=== PATIENT | male | born 1975 | race Caucasian/White ===

== ENCOUNTER 2025-05-08 13:09 | Emergency (ER) | payer OTHER, SELFPAY ==
[2025-05-08] VITALS (25 sets, daily range): BP systolic 135–156; BP diastolic 75–104; PULSE 62–81; RESP 8–28; TEMP 35.7; O2SAT 96–100; BMI 30.2
--- NOTE | 2025-05-08 13:30 | CRLHL7_ITS ---
For Patients: As a result of the Century Cures Act, medical imaging exams and procedure reports are released immediately into your electronic medical record. You may view this report before your referring provider. If you have questions, please contact your health care provider. INDICATION: Fall, facial lacerations TECHNIQUE: CT head without contrast. COMPARISON: None. FINDINGS: CSF spaces: Within normal limits for age. Brain parenchyma: The thomas-white differentiation is normal. No sign of mass, hemorrhage, or midline shift. Skull base and calvarium: Right maxillary sinus mucosal retention cysts. The visualized orbits are grossly unremarkable. Bilateral nasal bone fractures with mild leftward displacement of the nasal bones. IMPRESSION: 1. No intracranial bleed or mass effect. 2. Bilateral nasal bone fractures. Please note that all CT scans at this facility use dose modulation, iterative reconstruction, and/or weight-based dosing when appropriate to reduce radiation dose to as low as reasonably achievable. Dictated by Conner Kessler MD @ 05/08/2025 2:03:27 PM (Electronically Signed)
--- NOTE | 2025-05-08 13:30 | CRLHL7_ITS ---
For Patients: As a result of the Century Cures Act, medical imaging exams and procedure reports are released immediately into your electronic medical record. You may view this report before your referring provider. If you have questions, please contact your health care provider. Indication: Patient fell on pad of hand. Technique: Right hand 3 views. Comparison: None. Findings: Bones: Alignment is normal. No acute fracture or suspicious bone lesion. Joint spaces: Unremarkable. Soft tissues: Unremarkable. Impression: No evidence of an acute bony abnormality. Dictated by Rodrigue Pollock MD @ 05/08/2025 2:02:11 PM (Electronically Signed)
--- NOTE | 2025-05-08 13:30 | CRLHL7_ITS ---
For Patients: As a result of the Century Cures Act, medical imaging exams and procedure reports are released immediately into your electronic medical record. You may view this report before your referring provider. If you have questions, please contact your health care provider. INDICATION: Fall, facial lacerations. TECHNIQUE: CT maxillofacial without contrast. COMPARISON: None FINDINGS: Facial bones: Bilateral nasal bone fractures with medial displacement of the right nasal bone of 2 millimeters and 2 millimeter lateral displacement of the left nasal bone. Fracture extends to the anterior margin of the nasal septum. Orbits and globes: Unremarkable. Globes are intact. No sign of intraorbital hemorrhage or emphysema. Sinuses: Mucous retention cysts maxillary sinuses. Christine bullosa on the left. Soft tissues: Mild fat stranding in the paranasal tissues. IMPRESSION: Mildly displaced bilateral nasal bone fractures as described above. Please note that all CT scans at this facility use dose modulation, iterative reconstruction, and/or weight-based dosing when appropriate to reduce radiation dose to as low as reasonably achievable. Dictated by Conner Kessler MD @ 05/08/2025 2:19:33 PM (Electronically Signed)
--- NOTE | 2025-05-08 13:30 | CRLHL7_ITS ---
For Patients: As a result of the Cures Act, medical imaging exams and procedure reports are released immediately into your electronic medical record. You may view this report before your referring provider. If you have questions, please contact your health care provider. Indication: Pain, fall. Technique: Right elbow 3 views. Comparison: None. Findings: Bones: Alignment is normal. No acute fracture or suspicious bone lesion. Tiny olecranon enthesophyte. Joint spaces: Unremarkable. No elbow joint effusion. Soft tissues: Unremarkable. Impression: No evidence of an acute bony abnormality. Dictated by Rodrigue Pollock MD @ 05/08/2025 2:03:38 PM (Electronically Signed)
--- NOTE | 2025-05-08 13:30 | CRLHL7_ITS ---
For Patients: As a result of the Cures Act, medical imaging exams and procedure reports are released immediately into your electronic medical record. You may view this report before your referring provider. If you have questions, please contact your health care provider. INDICATION: Injury and pain. TECHNIQUE: Chest and right ribs 3 views. COMPARISON: None. FINDINGS: Cardiovascular and mediastinum: Heart size and vasculature are normal in caliber and appearance. Mediastinum is within normal limits. Lungs and pleural spaces: Lungs are clear. No sign of infiltrate or mass. No sign of pleural effusion. No pneumothorax. Bones and soft tissues: Detailed oblique images of the right ribs demonstrate no fractures or bone lesions. IMPRESSION: Unremarkable chest and right ribs. Dictated by Jorge Alberto Minor MD @ 05/08/2025 1:57:11 PM (Electronically Signed)
--- NOTE | 2025-05-08 13:50 | ED.GENADULT ---
HPI - General Adult General Chief complaint: Fall/Minor Trauma Stated complaint: laceration on face, chin, and possible broken nose Time Seen by Provider: 05/08/25 13:21 Source: patient Mode of arrival: ambulatory Limitations: no limitations History of Present Illness HPI narrative: 49-year-old male presenting today after falling from a ladder, approximately 10 ft in the air. He hit his face on the lateral wrong on the way down before hitting the ground. He is complaining of facial pain, right hand and elbow pain. Patient not on any blood thinners. Denies headache or confusion. No nausea or vomiting. TTA was called. Related Data Home Medications ?Medication ?Instructions ?Recorded ?Confirmed potassium chloride 10 mEq 10 meq PO DAILY 05/08/25 05/08/25 tablet,extended release(part/cryst) (Klor-Con M) Previous Rx's ?Medication ?Instructions ?Recorded sulfamethoxazole 800 1 tab PO BID 7 days #14 tabs 05/08/25 mg-trimethoprim 160 mg tablet (Bactrim DS) Allergies Allergy/AdvReac Type Severity Reaction Status Date / Time Penicillins Allergy Unknown Verified 05/08/25 13:34 amoxicillin Allergy Verified 05/08/25 13:38 Review of Systems Status of ROS: Reports: 10 or more systems reviewed and unremarkable except as noted in History and below Exam Narrative: Exam Narrative: Well-nourished well-developed patient in no acute distress. Alert and oriented x3. Answers questions appropriately. Mood and affect are appropriate. Thoughts are goal oriented and rational. No tangential or magical thinking noted. Patient speaks in full sentences without needing to catch their breath. GCS is 15. Patient is speaking and breathing without difficulty. Several areas of bleeding across his face. HEENT: Normocephalic . Pupils are equally round reactive to light. Extraocular muscles are intact. Conjunctivae are moist without any icterus noted. Moist mucous membranes. Posterior pharynx is normal. No trauma noted to the inside of the mouth. Neck is soft pain to palpation. Patient has bleeding across the forehead, bridge of the nose, chin. He has approximately a 1 in laceration on the forehead right between the eyebrows that penetrates through into the subcutaneous tissue. He has a laceration of the chin that is approximately 8 mm that is gaping open. He has a laceration of the bridge of the nose that does not penetrate through the dermis. No septal hematoma on either side. Cardiovascular: Heart is regular rate and rhythm S1 and S2 are present without any murmurs. Lungs: Clear to auscultation bilaterally no wheezes rhonchi or rales are appreciated. Patient takes deep breaths without any discomfort. Patient has no tenderness to palpation of the lateral or posterior chest wall. He has some tenderness to palpation of the anterior lower left chest wall, no bony point tenderness. A large abrasion is present at the area of tenderness. Abdomen: Soft and nontender nondistended with normal bowel sounds. No guarding or rebound. No masses or organomegaly appreciated. Extremities: Bilateral lower extremities are without edema. Normal DP and PT pulses. Swelling and superficial abrasion of the right elbow. Swelling of the thenar eminence of the right hand. Normal radial pulse. Small laceration to the lateral thumb on the left side, does not penetrate through the dermis and is superficial. Skin: Well perfused. Back: Normal appearance. Patient has no tenderness to palpation at the cervical, thoracic or lumbar spine. Patient has full range of motion at the neck with flexion, extension, side way bending and rotation without pain. Patient walks without difficulty. Const: Vital Signs, click to edit/add: Vital Signs - 24 hr 05/08/25 13:21 05/08/25 13:34 05/08/25 13:35 Temperature 96.2 F L Pulse Rate 72 66 Pulse Rate [Pulse Oximeter] 75 Respiratory Rate 16 Blood Pressure 136/87 Blood Pressure [Ri ght Upper Arm] 135/81 Pulse Oximetry 96 96 97 Oxygen Delivery Me thod Room Air 05/08/25 13:57 05/08/25 13:59 05/08/25 14:00 Temperature Pulse Rate 71 81 71 Pulse Rate [Pulse Oximeter] Respiratory Rate 27 H Blood Pressure 146/91 H Blood Pressure [Ri ght Upper Arm] Pulse Oximetry 100 99 97 Oxygen Delivery Me thod 05/08/25 14:01 05/08/25 14:06 05/08/25 14:11 Temperature Pulse Rate 69 71 Pulse Rate [Pulse Oximeter] Respiratory Rate 13 12 Blood Pressure 147/75 H 135/83 Blood Pressure [Ri ght Upper Arm] Pulse Oximetry 98 98 96 Oxygen Delivery Me thod 05/08/25 14:15 05/08/25 14:22 05/08/25 14:30 Temperature Pulse Rate 66 70 76 Pulse Rate [Pulse Oximeter] Respiratory Rate 11 L 28 H 18 Blood Pressure 140/89 H Blood Pressure [Ri ght Upper Arm] Pulse Oximetry 96 98 96 Oxygen Delivery Me thod Room Air Course Course ED Course: Head and facial CTs were obtained. Patient has a nasal fracture no other abnormalities. We x-rayed his hand, elbow and ribs-all unremarkable. Laceration of the forehead and chin were clean the usual sterile manner anesthetized with 2% lidocaine. Seven sutures with 6 0 Ethilon placed in the forehead and 4 sutures with 5 0 Ethilon placed in the chin. Thumb laceration was dressed. Vital Signs Vital signs: Initial Vital Signs Temperature 96.2 F L 05/08/25 13:21 Temperature Source Temporal Artery Scan 05/08/25 13:21 Pulse Rate 75 05/08/25 13:21 Respiratory Rate 16 05/08/25 13:21 Blood Pressure 135/81 05/08/25 13:21 Blood Pressure Mean 99 05/08/25 13:21 Blood Pressure Position Sitting 05/08/25 13:21 Pulse Oximetry 96 05/08/25 13:21 Oxygen Delivery Method Room Air 05/08/25 13:21 Vital Signs Temperature 96.2 F L 05/08/25 13:21 Pulse Rate 75 05/08/25 13:21 Respiratory Rate 16 05/08/25 13:21 Blood Pressure 135/81 05/08/25 13:21 Pulse Oximetry 96 05/08/25 13:21 Oxygen Delivery Method Room Air 05/08/25 13:21 Temperature 96.2 F L 05/08/25 13:21 Pulse Rate 76 05/08/25 14:30 Respiratory Rate 18 05/08/25 14:30 Blood Pressure 140/89 H 05/08/25 14:22 Pulse Oximetry 96 05/08/25 14:30 Oxygen Delivery Method Room Air 05/08/25 14:22 Medications Administered Medications: Discontinued Medications Generic Name Dose Route Start Last Admin Trade Name Freq PRN Reason Stop Dose Admin Lidocaine HCl 20 ml 05/08/25 14:39 05/08/25 14:49 Lidocaine Hcl 2 % Multidose 20 Ml Vial INJECTION 05/08/25 14:40 20 ml ONCE ONE Administration Medical Decision Making MDM Narrative Medical decision making narrative: 49-year-old male status post falling from a ladder suffering nasal fracture multiple facial lacerations. Treated per above. Patient will follow-up with ENT regarding nasal fracture. Because of the depth of the laceration on the chin, I do want the patient to be on antibiotics. Patient states that he cannot tolerate penicillins or amoxicillin. He states that Keflex give him a rash in the past also. Therefore we are going to use Bactrim at this time. Imaging Data X-ray elbow : Attestation: I have reviewed the pertinent imaging results. Radiologist's impression: Technique: Right elbow 3 views. Comparison: None. Findings: Bones: Alignment is normal. No acute fracture or suspicious bone lesion. Tiny olecranon enthesophyte. Joint spaces: Unremarkable. No elbow joint effusion. Soft tissues: Unremarkable. Impression: No evidence of an acute bony abnormality. Chest x-ray with ribs: Attestation: I have reviewed the pertinent imaging results. Radiologist's impression: TECHNIQUE: Chest and right ribs 3 views. COMPARISON: None. FINDINGS: Cardiovascular and mediastinum: Heart size and vasculature are normal in caliber and appearance. Mediastinum is within normal limits. Lungs and pleural spaces: Lungs are clear. No sign of infiltrate or mass. No sign of pleural effusion. No pneumothorax. Bones and soft tissues: Detailed oblique images of the right ribs demonstrate no fractures or bone lesions. IMPRESSION: Unremarkable chest and right ribs. X-ray hand: Attestation: I have reviewed the pertinent imaging results. Radiologist's impression: Technique: Right hand 3 views. Comparison: None. Findings: Bones: Alignment is normal. No acute fracture or suspicious bone lesion. Joint spaces: Unremarkable. Soft tissues: Unremarkable. Impression: No evidence of an acute bony abnormality. CT scan - head: Attestation: I have reviewed the pertinent imaging results. Radiologist's impression: TECHNIQUE: CT head without contrast. COMPARISON: None. FINDINGS: CSF spaces: Within normal limits for age. Brain parenchyma: The thomas-white differentiation is normal. No sign of mass, hemorrhage, or midline shift. Skull base and calvarium: Right maxillary sinus mucosal retention cysts. The visualized orbits are grossly unremarkable. Bilateral nasal bone fractures with mild leftward displacement of the nasal bones. IMPRESSION: 1. No intracranial bleed or mass effect. 2. Bilateral nasal bone fractures. CT facial: Attestation: I have reviewed the pertinent imaging results. Radiologist's impression: TECHNIQUE: CT maxillofacial without contrast. COMPARISON: None FINDINGS: Facial bones: Bilateral nasal bone fractures with medial displacement of the right nasal bone of 2 millimeters and 2 millimeter lateral displacement of the left nasal bone. Fracture extends to the anterior margin of the nasal septum. Orbits and globes: Unremarkable. Globes are intact. No sign of intraorbital hemorrhage or emphysema. Sinuses: Mucous retention cysts maxillary sinuses. Christine bullosa on the left. Soft tissues: Mild fat stranding in the paranasal tissues. IMPRESSION: Mildly displaced bilateral nasal bone fractures as described above. Discharge Plan Discharge Clinical Impression: Fall, Face lacerations, Fracture, nasal Patient Disposition: Home, Self-Care Condition: Stable Additional Instructions: You will need to follow-up with the Ear, Nose, and Throat doctor for follow-up of your nose fracture. The phone number will be provided to you today, call them 1st thing in the morning and ask for an ER follow-up visit on Tuesday or Tuesday. Keep wounds clean and dry. Do not soak such as taking baths, swimming. Follow-up in approximately 1 week for suture removal with your primary care provider. Watch for signs and symptoms of infection including increasing redness of the area, purulent drainage, or fever. If this occurs follow-up right away with your doctor or return to the ER. This will be unlikely as you will be placed on antibiotics today. Take all antibiotics as prescribed. Recommend not taking potassium supplements for the next 5 days (okay to take for the last 2 days while on antibiotics) as there is a potential reaction between the supplement and your antibiotic. Prescriptions: New sulfamethoxazole-trimethoprim [Bactrim DS] 800-160 mg tablet 1 tab PO BID 7 Days Qty: 14 0RF No Action potassium chloride [Klor-Con M10] 10 mEq tablet,ER particles/crystals 10 meq PO DAILY Stand Alone Forms: MyHealth Info Instructions
[2025-05-08] MEDS: lidocaine HCL 2 % MULTIDOSE 20 ML VIAL INJECTION (14:49)
[2025-05-08] MEDS: ACETAMINOPHEN 500 MG TABLET 1000 MG PO (15:38)
--- OUTSIDE RECORDS SUMMARY | 2025-05-08 15:45 | XMS_ITS | Clinical Summary ---
Author Organization [facility] Address [address] [place] [id number] Care Team Providers Care Back Tender Insulation Board Name Role Phone Sepideh Chavis MD Primary Care Provider [phone] Allergies Active Allergy Reactions Criticality Noted Date Comments Amoxicillin Diarrhea,Vomiting 11/20/2018 Cephalexin Rash 02/27/2016 Developed extensive folliculitis across his chest twice while taking cephalexin. Medications sertraline (ZOLOFT) 100 mg tabletIndication s:Reactive depression Take 1 Tablet (100 mg) by mouth every morning. 90 Tablet 3 10/17/2023 Active Active Problems Problem Noted Date Diagnosed Date Umbilical hernia without obstruction and without gangrene 04/21/2023 Snoring 06/20/2017 Overview (07/10/2018): With witnessed apneas and non-restorative sleep. Seen by [facility] 06/20/2017, and a Home Sleep Test was ordered, and then follow up with the Sleep Clinic 1 week later. IMPRESSION: Excessive Daytime Sleepiness (780.54, G47.10) - No Evidence of Obstructive Sleep Apnea Primary Snoring (786.09, R06.83) - No Evidence of Obstructive Sleep Apnea Blank RECOMMENDATIONS: - A formal polysomnogram should be considered given a high false negative rate to home sleep testing. - However, if there is low clinical suspicion for obstructive sleep apnea, a negative home sleep test can be diagnostic. - Follow-up with a provider to discuss results is recommended. - Patients should be advised to avoid critical tasks, such as driving, whenever drowsy. - Patients should try to achieve at least 7-8 hours of sleep on a consistent basis. Mae Mayer MD .................... 07/15/2017 Overnight sleep study done 07/26/2017 at [facility], and AHI<20, so patient did not meet criteria for CPAP treatment. H/O: vasectomy 07/23/2016 Overview (07/23/2016): 2016 Prediabetes 03/02/2016 Overview (07/23/2018): GLUCOSE (mg/dL) Date Value 03/02/2016 102* GLUCOSE (mg/dL) Date Value 07/19/2018 100 HEMOGLOBIN A1C SCREENING (%) Date Value 07/19/2018 4.7 Dyslipidemia 03/02/2016 Overview (07/23/2018): Low HDL level. Last Lipids: Chol: 138 03/02/2016 T 03/02/2016 HDL: 36 03/02/2016 LDL: 75 03/02/2016 Last Lipids: Chol: 07/19/2018 165 T07/19/2018 103 HDL: 07/19/2018 43 LDL: 07/19/2018 101 Overweight 02/27/2016 Overview (07/23/2018): BMI 29-30 range. Reactive depression 02/27/2016 Overview (02/27/2016): On sertraline since 2014, since being unemployed/underemployed. Eczema 02/27/2016 Overview (02/27/2016): [place] [address]. Tends to flare up more in the winter time. Resolved Problems Problem Noted Date Diagnosed Date Resolved Date Health care maintenance 02/27/2016 07/0 12/2021 Overview (02/27/2016): Colonoscopy Bone Density Last Lipids: Chol: TG: HDL: LDL: Immunizations Immunization Administration Dates Next Due COVID-19 vaccine (Moderna 100mcg/0.5mL) PF, MDV 02/24/2021,01/22/2021 COVID-19 vaccine (Moderna Johnnie ankush 50mcg/0.25mL) PF, MDV 02/12/2022 Influenza Virus, Unspecified 06/05/2015 Influenza, IIV4 07/06/2023, 0,08/03/2019,2016 Influenza, IIV4 (=>6mos) MDV 07/10/2018 Tdap 12/11/2014 Family History Medical History Relation Name Comments Other Brother Obesity Sleep apnea Brother Hypertension Father Heart failure Maternal Aunt from CHF (mother's twin sister). Heart Disease Maternal Grandfather ? from [place] Diabetes Mother DM2 Peripheral vascular disease Mother Carotid stent at age 65 (smoker). Other Paternal Aunt 1 CA (?type) Other Paternal Aunt 2 CA (?type) Heart Disease Paternal Grandfather ? from MD Other Paternal Grandmother Thyroid CA Relation Name Status Comments Brother Alive Father Alive Maternal Aunt Maternal Grandfather Mother Alive Paternal Aunt 1 Paternal Aunt 2 Paternal Grandfather Paternal Grandmother Social History Tobacco Use Types Packs/Day Years Used Date Smoking Tobacco: Former Cigarettes 0.3 15.7 1 995 - 06/05/2010 Smokeless Tobacco: Never Tobacco Cessation:Counseling Given: Not Answered Comments:Stopped in Sep Alcohol Use Standard Drinks/Week Comments Not Currently 0 (1 standard drink = 0.6 oz pur e alcohol) rarely PHQ-2 Answer Date Recorded PHQ-2 TOTAL SCORE 3 10/17/2023 Social Connections Answer Date Recorded Frequency of Communication with Friends and Fami ly Not on file 09/10/2021 Financial Resource Strain Answer Date R ecorded Difficulty of Paying Living Expenses Not on file 09/10/2021 Difficulty of Paying Living Expenses Not on file 09/10/2021 Sex and Gender Information Value Date Recorded Sex Assigned at Male 01/21/2021 3:15 PM CDT Legal Sex Male 5:13 PM CDT Gender Identity Male 01/21/2021 3:15 PM CDT Sexual Orientation Straight 01/21/2021 3: 15 PM CDT 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12 04/21/2023 12:52 PM CDT Plan of Treatment Health Maintenance Due Date Last Done Comments HIV for age 15-65 1989 Hepatitis B series for 19+ ( 1 of 3 - 19+ 3-dose series) 1993 BMI (ht and wt on same day) for age 18+ 04/21/2024 04/21/2023, 03/25/2022, 07/11/2020, Additional history exists COVID-19 vaccine series ( season) 2024 02/12/2022, 02/24/2021, 01/22/2021 Depression screening for age 12+ 10/17/2024 10/17/2023, 07/06/2023, 04/21/2023, Additional history exists Pneumococcal series for age 50+ (1 of 1 - PCV) 2024 Zoster (shingles) series for age 50+ (1 of 2) 2024 Tetanus booster 12/11/2024 12/11/2014 Influenza Vaccine (#1) 2025 , 07/11/2020, 08/03/2019, Additional history exists Lipids for age 45-75 04/21/2028 04/21/2023, 04/08/2022, 09/01/2020, Additional history exists Colonoscopy through age 75 08/12/2032 08/12/2022 Hepatitis C screening for ag e 18-79 Completed 04/08/2022 Procedures Procedure Name Priority Date/Time Associated Diagnosis Comments LIPID PANEL W REFLEX MEASURED LDL Routine 04/21/2023 1:47 PM CDT Dyslipidemia SCAN-COLONOSCOPY 08/12/2022 3:00 PM TABLE ASSEMBLER ANTI HCV Routine 04/08/2022 12:14 PM CDT Need for hepatitis C screening test from Last 3 Months or Most Recently Relevant to Health Maintenance Results * (ABNORMAL) LIPID PANEL W REFLEX MEASURED LDL (04/21/2023 1:47 PM CDT) CHOLESTEROL,TOTAL 160 100 - 199 mg/dL 04/21/2023 8:12 PM CDT [facility] Comment: Cholesterol, Total Reference Ranges Desirable <200 mg/dL Borderline 200-239 mg/dL High >=240 mg/dL TRIGLYCERIDES 140 <150 mg/dL 04/21/2023 8:12 PM CDT [facility] HDL CHOLESTEROL 40(L) >40 mg/dL 8:12 PM CDT [facility] NON-HDL CHOLESTEROL 120 <145 mg/dl 04/21/2023 8:12 PM CDT [facility] CHOL/HDL RATIO 4.00 <4.50 04/21/2023 8:12 PM CDT [facility] LDL CHOLESTEROL 92 <=130 mg/dL 04/21/2023 8:12 PM CDT [facility] VLDL CHOLESTEROL 28 <=30 mg/dL 04/21/2023 8:12 PM CDT [facility] PROVIDER ORDERED STATUS FASTING 04/21/2023 8:12 PM CDT [facility] Blood BLOOD SPECIMEN / Unknown Venipuncture / Unknown 04/21/2023 1:47 PM CDT 04/21/2023 1:49 PM CDT us Sepideh Chavis MD CHEMISTRY Final Result [facility] [address] [place] [address], [place] * SCAN-COLONOSCOPY (08/12/2022 3:00 PM TABLE ASSEMBLER) Narrative Procedure Note Sandeep Hilliard MD - 08/12/2022 2:18 PM CST [facility] [address] [place] [address], [address], [place] [address] Patient Name: Olu Kincaid Gender: Male Exam Date: 08/12/2022 Visit Number: [id number] Age: 46 Years Date of : 1975 Attending MD: Sandeep Hilliard MD Medical Record#: [id number] Procedure: Colonoscopy Indications: Colorectal cancer screening Referring MD: Referral Self Primary MD: Paula Lunsford MD Medications: Admitting Medications: 0.9% Normal Saline at TKO Intra Procedure Medications: Patient received monitored anesthesia care. Complications: No immediate complications Procedure: An examination of the heart and lungs was performed and found to be withinacceptable limits. . The patient was therefore deemed a reasonablecandidate for endoscopy and sedation. The risks and benefits of the procedure were explained to the patient.After obtaining informed consent, the patient received monitoredanesthesia care and I passed the scope without difficulty via the rectum to the ileum. The appendiceal orificeand ic valve were identified. The scope was retroflexed during theexamination The quality of the prep was excellent (Miralax/Gatorade/2tablets Bisacodyl/Magnesium Citrate). This was a complete examination throughout the entire colon. Findings: Normal finding. Location - ileum. Polyp location: ascending colon. Quantity: 2. Size: 3 mm, 5 mm. Polypshape: sessile. Maneuver: polypectomy was performed with a cold snare. Removal: complete. Retrieval: complete. Bleeding: none. Polyp location: rectosigmoid. Quantity: 2. Size: 2 mm, 3 mm. Polypshape: sessile. Maneuver: polypectomy was performed with a cold snare . Removal: complete. Retrieval: complete. Bleeding: none. Remainder of the exam is normal. Comments: retroflexion right colon Impression: Colorectal polyps Preliminary Plan: The patient and their physician will receive a copy of the pathologyreport as well as pathology-based recommendations for future screening orsurveillance. Return to your primary care provider Pathology Results: A: COLON, ASCENDING, POLYPS: 1. Sessile serrated adenomas (2) 2. Negative for overt dysplasia 3. Per the colonoscopy report: a. Polyp sizes: 3 mm and 5 mm b. Resection: Complete c. Retrieval: Complete B: COLON, SIGMOID AND RECTUM, POLYPS: 1. Hyperplastic polyps (2) MICROSCOPIC A: Performed B: Performed Electronically signed by: Jose Ramon Madrigal MD Interpreted at [facility], [address] [place], [place] [id number] Orders Instruction(s)/Education: Instruction/Education Timeframe Assessment Colon Polyps K63.5 Final Plan: Repeat colonoscopy in 7 years for Polyp surveillance. We will attempt to contact you at appropriate intervals via U.S. mail. Wemay not be able to find you or contact you at that time, therefore youshould know that the responsibility for following our recommendation restswith you. If you don't hear from us at the time your procedure is due,please contact our office to schedule an appointment. If your contactinformation should change, please contact our office so that we can updateyour record. _Electronically signed by: Sandeep Hilliard MD 08/12/2022 cc: Paula Lunsford MD us Sandeep Hilliard MD OTHER Final Resu lt * ANTI HCV (04/08/2022 12:14 PM CDT) HEPATITIS C ANTIBODY Non-React stefan Non-React stefan 04/08/2022 8:53 PM CDT [facility] Comment:Antibodies to HCV no t detected; does not exclude the possibility of exposure to HCV. Blood BLOOD SPECIMEN / Unknown Venipuncture / Unknown 04/08/2022 12:14 PM CDT 04/08/2022 12:18 PM CDT us Sepideh Chavis MD SEND OUTS Final Result [facility] [address] [place] [address], from Last 3 Months or Most Recently Relevant to Health Maintenance Care Teams Back Tender Insulation Board Relationship Specialty Start Date End Date Sepideh Chavis MD [address] [place] [address] PCP - General Family Practice 12/03/19
--- OUTSIDE RECORDS SUMMARY | 2025-05-08 15:45 | XMS_ITS | Clinical Summary ---
Author Organization [facility] Address [address] [place] [address] Care Team Providers Care Toy Consultant Name Role Phone Unavailable Primary Care Provider Unavailabl e Source Comments You are receiving this document as you are listed as the primary care provider,follow-up provider, or the patient has been referred to you for consultation.This is in compliance with the Medicare andMedicaid EHR Incentive Program,which states Providers who transition their patient to another setting of careor provider of care or refers their patient to another provider of care shouldprovide summary care record for each transition of care or referral. [facility] Allergies Active Allergy Reactions Criticality Noted Date Comments Amoxicillin Diarrhea,Gastrointes ti nal 11/20/2018 Cephalexin Rash 02/27/2016 Developed extensive folliculitis across his chest twice while taking cephalexin. Medications triamcinolone acetonide (KENALOG) 0.1 % creamIndications :Urticaria,Eczem a, unspecified type Apply topically three times a day. 30 g 5 Active Active Problems Problem Noted Date Diagnosed Date Umbilical hernia without obstruction and without gangrene 04/21/2023 Snoring 06/20/2017 Overview (12/27/2024): With witnessed apneas and non-restorative sleep. Seen by [facility] 06/20/2017, and a Home Sleep [...] 07/15/2017 Overnight sleep study done 07/26/2017 at [facility], and AHI<20, so patient did not meet criteria for CPAP treatment. H/O: vasectomy 07/23/2016 Overview (12/27/2024): 2016 Dyslipidemia 03/02/2016 Overview (12/27/2024): Low HDL level. Last Lipids: Chol: 138 03/02/2016 T 03/02/2016 HDL: 36 03/02/2016 LDL: 75 03/02/2016 Last Lipids: Chol: 07/19/2018 165 T07/19/2018 103 HDL: 07/19/2018 43 LDL: 07/19/2018 101 Prediabetes 03/02/2016 Overview (12/27/2024): GLUCOSE (mg/dL) Date Value 03/02/2016 102* GLUCOSE (mg/dL) Date Value 07/19/2018 100 HEMOGLOBIN A1C SCREENING (%) Date Value 07/19/2018 4.7 Eczema 02/27/2016 Overview (12/27/2024): Since [address]. Tends to flare up more in the winter time. Overweight 02/27/2016 Overview (12/27/2024): BMI 29-30 range. Reactive depression 02/27/2016 Overview (12/27/2024): On sertraline since 2014, since being unemployed/underemployed. Immunizations Immunization Administration Dates Next Due Fluzone Qiv Multidose Vial 0 .25 (6-35 Mos) 07/10/2018 Influenza IIV4 (Quadrivalent ) 0.5mL (36179) 07/06/2023,07/11/2020,08/03/2019,2016 Influenza, Unspecified Formulation 06/05/2015 Moderna Monovalent 12+ 02/12/2022,02/24/2021, PCV20 ([id number]) 12/27/2024 Tdap 12/27/2024,12/11/2014 Social History Tobacco Use Types Packs/Day Years Used Date Smoking Tobacco: Former Cigarettes 0.5 4.7 0 09/12/2020 - 09/12/1993 Smokeless Tobacco: Never Tobacco Cessation:Counseling Given: Not Answered Alcohol Use Standard Drinks/Week Comments Not Currently 0 (1 standard drink = 0.6 oz pur e alcohol) PHQ-2 Answer Date Recorded PHQ-2 Score 2 12/27/2024 Sex and Gender Information Value Date Recorded Sex Assigned at Not on file Legal Sex Male 3:13 PM 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 Gender Identity Not on file Sexual Orientation Not on file Last Filed Vital Signs Vital Sign Reading Time Taken Comments Blood Pressure 117/72 12/27/2024 12:05 PM CDT Pulse 66 12/27/2024 12:05 PM CDT Temperature 36.8 C (98.3 F) 08/27/2024 2:38 PM 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 Respiratory Rate - - Oxygen Saturation - - Inhaled Oxygen Concentration - - Weight 103.7 kg (228 lb 9.6 oz) 12/27/2024 12:05 PM CDT Height 181.6 cm (5' 11.5) 08/05/2024 6 :04 PM 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 Pt reported Body Mass Index 31.44 08/05/2024 6:04 PM 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 Plan of Treatment Health Maintenance Due Date Last Done Comments Colon Cancer Screening Plan Due 1975 Hep C Screening (Preventive Services) 1975 PSA Screening Discussion 1975 HIV Screening (Preventive Services) 1990 Adult Preventive Visit 1992 HepB Vaccine (1) 1993 Cholesterol 2009 Prediabetes: HGBA1C 04/21/2024 04/21/2023, 2 COVID-19 Vaccine ( season) 2024 02/12/2022, 02/24/2021, 01/22/2021 Zoster/Shingles Vaccine (1 of 2) 2024 Influenza Vaccine (#1) 2025 3, 07/11/2020, 08/03/2019, Additional history exists DTaP/Tdap/Td Vaccine (3 - Tdap) 12/27/2034 12/27/2024, 12/11/2014 Pneumococcal Vaccine 50+ Yrs Completed 12/27/2024 HepA Vaccine Aged Out No longer eligi ble based on patient's age to complete this topic Hib Vaccine Aged Out No longer eligi ble based on patient's age to complete this topic IPV (Polio) Vaccine Aged Out No longe r eligible based on patient's age to complete this topic MCV4 Vaccine Aged Out No longer eligi ble based on patient's age to complete this topic Meningococcal B Vaccine Aged Out No l onger eligible based on patient's age to complete this topic Insurance [employer] NETWORK FULLY INSURED [facility] NETWORK FULLY INSURED
== END 2025-05-08 15:57 | disposition home or self-care (01) ==
LOC: ED 15:43
PROVIDERS: Emergency Provider Family Medicine
DX: S50.311A Abrasion of right elbow, initial encounter (principal); S02.2XXA Fracture of nasal bones, initial encounter for closed fracture; S01.81XA Laceration without foreign body of other part of head, initial encounter; S61.012A Laceration without foreign body of left thumb without damage to nail, initial encounter; W11.XXXA Fall on and from ladder, initial encounter
CPT/HCPCS: 12011; 70450; 70486; 71101; 73080; 73130; 94761; 99285; 99291; A9270